=== PATIENT | female | born 1975 | race Caucasian/White ===

== ENCOUNTER → 2017-02-20 | Outpatient (CLI) | payer OTHER ==
[~2017-02-20] VITALS: Ht 157.5 cm; Wt 64.9 kg
[~2017-02-20] MED LIST: BUPIVACAINE 0.5% 50 ML VIAL. INJ ONE; GABA300T3 PO; HYDR-2666 PO; IOHEXOL 300 MG/ML 50 ML VIAL. IJ ONE; RIVA15TA PO; methylPREDNISolone ACETATE 80 MG/ML VIAL. IM ONE
[2017-02-20 13:34] VITALS: BP 106/65
--- NOTE | 2017-02-20 15:20 | RAD ---
Fluoroscopically guided left hip injection History: Left hip pain after fall. Comparison: None. Procedure: Risks and benefits of procedure were discussed with the patient. Written informed consent was obtained. Appropriate site on the skin was marked. The skin was prepped and draped in usual sterile fashion. Local anesthesia was provided with 1% lidocaine. Under intermittent fluoroscopic visualization, 22-gauge spinal needle was inserted into the hip joint. Intra-articular location was confirmed with contrast administration. 2 mL Omnipaque 300 IV contrast, 80 mg of Depo-Medrol (in a volume of 1 mL), and 6 mL of 0.5% Sensorcaine were injected into joint. Needle was then removed and local pressure was applied. Patient tolerated procedure well and there were no acute ill effects. 2 spot fluoroscopic images were sent to the PACS system for documentation. Total fluoroscopic time was 1.1 minutes. Impression: Technically successful left hip injection of steroid and anesthetic.
== END | disposition home or self-care (01) ==
LOC: RAD 12:58
PROVIDERS: ATTEND Nurse Practitioner Gerontology
DX: M25.552 Pain in left hip (principal)
CPT/HCPCS: 20610; 77002; J1040; J3490; Q9967